=== PATIENT | male | born 1975 | race Caucasian/White ===

== ENCOUNTER 2016-05-26 09:01 | Emergency (ER) | payer OTHER ==
[2016-05-26] MEDS ORDERED: DEXAMETHASONE 10 MG/ML VIAL PO STA (09:29)
[2016-05-26] MEDS ORDERED: KETOROLAC 60 MG/2 ML VIAL IM STA (09:29)
[2016-05-26] MEDS ORDERED: DEXAMETHASONE 10 MG/ML VIAL ONE (09:33)
[2016-05-26] MEDS ORDERED: KETOROLAC 60 MG/2 ML VIAL ONE (09:33)
[2016-05-26] MEDS ORDERED: CHERRY SYRUP 10 ML UDC PO ONE (09:34)
== END 2016-05-26 09:55 | disposition home or self-care (01) ==
DX: M54.12 Radiculopathy, cervical region (principal); F17.200 Nicotine dependence, unspecified, uncomplicated
CPT/HCPCS: 96372; 99283; 99284; A9270

== ENCOUNTER 2020-07-17 08:00 | Outpatient (CLI) | payer OTHER ==
[2020-07-17 19:52] LABS: BASOPHILS # (AUTO) 0.1 10^3/uL (0.0-0.1); BASOPHILS % (AUTO) 0.9 %; EOSINOPHILS # (AUTO) 0.1 10^3/uL (0.0-0.7); EOSINOPHILS % (AUTO) 0.7 %; HCT - HEMATOCRIT 41.4 % (42.0-52.0); HGB - HEMOGLOBIN 13.3 g/dL (14.0-18.0); MEAN CORPUSCULAR HEMOGLOBIN 32.5 pg (27.0-31.0); MEAN CORPUSCULAR HGB CONC 32.1 g/dL (32.0-36.0); MEAN CORPUSCULAR VOLUME 101.2 fL (80.0-94.0); MEAN PLATELET VOLUME 8.9 fL (7.4-11.4); MONOCYTES # (AUTO) 0.6 10^3/uL (0.0-1.0); MONOCYTES % (AUTO) 8.2 %; NEUTROPHILS # (AUTO) 4.2 10^3/uL (1.5-6.6); NEUTROPHILS % (AUTO) 61.1 %; PLT - PLATELET COUNT 394 10^3/uL (130-450); RED BLOOD COUNT 4.09 10^6/uL (4.70-6.10); WHITE BLOOD COUNT 6.9 x10^3/uL (4.8-10.8)
[2020-07-17 20:06] LABS: ALBUMIN 4.2 g/dL (3.2-5.5); ALBUMIN/GLOBULIN RATIO 1.4 (1.0-2.2); BILIRUBIN,TOTAL 0.5 mg/dL (0.2-1.0); CALCIUM 9.2 mg/dL (8.5-10.3); CREATININE 0.7 mg/dL (0.6-1.2); TOTAL PROTEIN 7.2 g/dL (6.7-8.2)
[2020-07-17 20:23] LABS: THYROID STIMULATING HORMONE 1.85 uIU/mL (0.34-5.60)
== END 2020-07-17 23:59 | disposition home or self-care (01) ==
LOC: LAB.S 08:00
PROVIDERS: ATTEND Physician Assistant
DX: F41.9 Anxiety disorder, unspecified (principal); R03.0 Elevated blood-pressure reading, without diagnosis of hypertension; R07.9 Chest pain, unspecified
CPT/HCPCS: 36415; 80053; 84443; 85025

== ENCOUNTER 2021-12-05 12:05 | Emergency (ER) | payer OTHER ==
--- OUTSIDE RECORDS SUMMARY | 2021-12-05 12:25 | EXTERNAL MEDICAL SUMMARY RPT | Continuity of Care Document ---
:1975 Author Organization [facility] Address [address] [place] [address] Phone Care Team Providers Name Role Phone Unavailable Unavailable Unavailable Addie Physical Sciences Professor-C Unavailable Unavailable Allergies No information. Encounters No information. Functional Status No information. Immunizations No information. Medications date description facility [id number]+0000 hydrocodone-acetaminophen [facility] gu[place] [phone]+0000 hydrocodone-acetaminophen [facility] [phone]+0000 hydrocodone-acetaminophen [facility] [phone]+0000 hydrocodone-acetaminophen [facility] Problems No information. Procedures date description facility [id number] Visit Code Hold [facility] [phone]+0000 CT ABDOMEN/PELVIS W [facility] [phone]+0000 US ABDOMEN LIMITED [facility] Results/Labs No information. Social History date description facility [phone] Current every day smoker Walk-In [facility] Vital Signs date measurement value units [id number] BMI BMI 22.05 kg/m2 [id number]+0000 BP_diastolic BP_diastolic 81 mmHg [id number]+0000 BP_systolic BP_systolic 132 mmHg [id number]+0000 heart_rate heart_rate 98 /min [id number]+0000 height_metric height_metric 182.88 cm [id number]+0000 height_standard height_standard 72 in [id number]+0000 respiration_rate respiration_rate 15 /min [id number]+0000 temperature_metric temperature_metric 36.28 C [id number]+0000 temperature_standard temperature_standard 9 7.3 F [id number]+0000 weight_metric weight_metric 73.48 kg [id number]+0000 weight_standard weight_standard 162 lb
--- NOTE | 2021-12-05 12:46 | ED Physician Documentation ---
PD HPI ABD PAIN - Stated complaint Stated Complaint: ABD PX - Chief complaint Chief Complaint: Abd Pain - History obtained from History obtained from: Patient - History of Present Illness Timing - onset: How many weeks ago (Patient has had several weeks of intermittent right lower abdominal pain with a feeling of swelling in the soft tissue. Its been more notable over the last several days. Was seen in the walk-in clinic and had ultrasound of the abdomen which suggested a mass. CT scan done yesterday=appendicitis.) Timing - duration: Days (more consistent RLQ pain), Weeks (intermittent right lower pain) Timing - details: Waxing and waning Quality: Cramping, Aching Location: RLQ Radiation: No: Right flank Associated symptoms: Nausea. No: Fever, Vomiting, Diarrhea Review of Systems Constitutional: denies: Fever, Chills Nose: denies: Rhinorrhea / runny nose, Congestion Throat: denies: Sore throat Respiratory: denies: Cough GI: reports: Abdominal Pain, Nausea. denies: Vomiting, Diarrhea Skin: denies: Rash, Lesions PD PAST MEDICAL HISTORY - Past Medical History Cardiovascular: None GI: None - Past Surgical History Past Surgical History: No - Present Medications Home Medications: Ambulatory Orders Medication Instructions Recorded Confirmed Ibuprofen [Motrin] 600 mg PO TID #30 tab 09/07/15 05/26/16 Cyclobenzaprine [Flexeril] 10 mg PO TID PRN #20 tablet 05/26/16 Gabapentin 300 mg PO TID 05/26/16 05/26/16 HYDROcod/ACETAM 5/325 [[place] 5/325] 1 - 2 ea PO Q6H PRN #15 tablet 05/26/16 - Allergies Allergies/Adverse Reactions: Allergies Allergy/AdvReac Type Severity Reaction Status Date / Time No Known Drug Allergies Allergy Verified 12/05/21 12:11 - Social History Does the pt smoke?: Yes Smoking Status: Current every day smoker Does the pt drink ETOH?: Yes Does the pt have substance abuse?: No - Immunizations Immunizations are current?: Yes PD ED PE NORMAL - Vitals Vital signs reviewed: Yes - General General: Alert and oriented X 3, Well developed/nourished, Other (seems uncomfortable RLQ. ) - Cardiac Cardiac: RRR, No murmur - Respiratory Respiratory: Clear bilaterally - Abdomen Abdomen: Normal bowel sounds, Non distended, No organomegaly, Other (tender RLQ with some guarding. No general tenderness. ) - Male Male : Deferred - Rectal Rectal: Deferred - Back Back: No CVA TTP - Derm Derm: Normal color, Warm and dry Results - Vitals Vitals: Vital Signs - 24 hr 12/05/21 12/05/21 12/05/21 12:11 16:15 18:00 Temperature 36.5 C 37.4 C 37.2 C Heart Rate 110 H 73 88 Respiratory 16 18 18 Rate Blood Pressure 145/86 H 118/79 132/90 H O2 Saturation 99 98 99 12/05/21 20:00 Temperature 37.0 C Heart Rate 89 Respiratory 18 Rate Blood Pressure 144/100 H O2 Saturation 98 Oxygen O2 Source Room air - Labs Labs: Laboratory Tests 12/05/21 12/05/21 12/05/21 13:13 13:13 13:13 WBC 12.7 H RBC 3.96 L Hgb 12.7 L Hct 38.0 L MCV 96.0 H MCH 32.1 H MCHC 33.4 RDW 12.2 Plt Count 567 H MPV 7.9 Neut # (Auto) 9.8 H Lymph # (Auto) 1.4 L [place] # (Auto) 1.1 H Eos # (Auto) 0.2 Baso # (Auto) 0.1 Absolute Nucleated RBC 0.00 Nucleated RBC % 0.0 Sodium 138 Potassium 3.7 Chloride 104 Carbon Dioxide 23 Anion Gap 11.0 BUN 11 Creatinine 0.7 Estimated GFR (MDRD) 121 Glucose 126 H Calcium 8.7 Total Bilirubin 0.3 AST 22 ALT 20 Alkaline Phosphatase 106 Total Protein 7.4 Albumin 3.3 Globulin 4.1 Albumin/Globulin Ratio 0.8 L Lipase 32 SARS-CoV-2 (PCR) NOT DETECTED - Rads (name of study) abd CT from 12/04 Radiology: Final report received (pericecal fluid collection 4.4x3.2 cm c/w appendicitis vs cecal cancer. ) PD MEDICAL DECISION MAKING - ED course Complexity details: reviewed results, considered differential, d/w patient, d/w building consultant (I talked with surgery on-call and the surgeon reviewed the CT images and examined the patient. The feeling was the patient would be better treated with percutaneous drainage and treatment that way rather than immediate open surgery. We are unable to get that performed at our facility so transfer.) ED course: looking for other facilities to take patient that have IR capability for perc drainage. Care given dawn to oncoming EDMD. Departure - Departure Disposition: 02 Transfer Acute Care Hosp Clinical Impression: Right lower quadrant abdominal pain Appendicitis Qualifiers: Appendicitis type: acute appendicitis Acute appendicitis type: with localized peritonitis Appendicitis gangrene presence: without gangrene Appendicitis perforation presence: with perforation Appendicitis abscess presence: with abscess Qualified Code(s): K35.33 - Acute appendicitis with perforation and localized peritonitis, with abscess Condition: Stable Record reviewed to determine appropriate education?: Yes
[2021-12-05] MEDS ORDERED: SODIUM CHLORIDE 0.9% 1,000 ML IV STA (13:03)
[2021-12-05 13:18] LABS: BASOPHILS # (AUTO) 0.1 10^3/uL (0.0-0.1); BASOPHILS % (AUTO) 0.7 %; EOSINOPHILS # (AUTO) 0.2 10^3/uL (0.0-0.7); EOSINOPHILS % (AUTO) 1.7 %; HGB - HEMOGLOBIN 12.7 g/dL (14.0-18.0); LYMPHOCYTES # (AUTO) 1.4 10^3/uL (1.5-3.5); LYMPHOCYTES % (AUTO) 11.1 %; MEAN CORPUSCULAR HEMOGLOBIN 32.1 pg (27.0-31.0); MEAN CORPUSCULAR HGB CONC 33.4 g/dL (32.0-36.0); MEAN PLATELET VOLUME 7.9 fL (7.4-11.4); MONOCYTES # (AUTO) 1.1 10^3/uL (0.0-1.0); MONOCYTES % (AUTO) 8.7 %; NEUTROPHILS # (AUTO) 9.8 10^3/uL (1.5-6.6); NEUTROPHILS % (AUTO) 77.4 %; PLT - PLATELET COUNT 567 10^3/uL (130-450); RED BLOOD COUNT 3.96 10^6/uL (4.70-6.10); RED CELL DISTRIBUTION WIDTH 12.2 % (12.0-15.0); WHITE BLOOD COUNT 12.7 x10^3/uL (4.8-10.8)
[2021-12-05 13:32] LABS: ALBUMIN 3.3 g/dL (3.2-5.5); ALBUMIN/GLOBULIN RATIO 0.8 (1.0-2.2); BILIRUBIN,TOTAL 0.3 mg/dL (0.2-1.0); CALCIUM 8.7 mg/dL (8.5-10.3); CREATININE 0.7 mg/dL (0.6-1.2); POTASSIUM 3.7 mmol/L (3.5-5.0); TOTAL PROTEIN 7.4 g/dL (6.7-8.2)
[2021-12-05] MEDS ORDERED: PIPERACILLIN/TAZOBACTAM 3.375 GM in SODIUM CHLORIDE 0.9% MINIBAG 100 ML IV STA ×2 (14:02→18:38)
--- NOTE | 2021-12-05 14:34 | CONSULTATION NOTE ---
Referring Provider Name of Referring Provider:: Dr. Ford Consult Date: 12/05/21 Chief Complaint - Chief Complaint Chief Complaint: abdominal pain History of Present Illness - History Obtained From Records Reviewed: ED, radiology History obtained from: patient, chart - History of Present Illness HPI Comment/Other: This is a very pleasant 46-year-old gentleman who reports that he has had abdominal pain in the right lower quadrant for the last 1 month. He denies any associated nausea, vomiting, fevers, chills, constipation, diarrhea, or blood in his stool.He tells me he is has been able to tolerate a regular diet without any difficulty. He also denies any melanotic stool. He states its been a nagging, achy, constant pain. He has never had pain like this in the past. When he looked in the mirror, he noted swelling on the right side of his abdomen and it is tender to palpation. For this he went to urgent care where he had an ultrasound, subsequent CT, and was referred to the emergency department. There is concern for perforated appendicitis versus perforated cancer, and for this I was consulted. At the time of my interview and exam, the patient states that he has pain mostly with palpation. He denies feeling nauseous or febrile. He has not had any recent sick contacts.He has never had a colonoscopy. History - Past Medical History Cardiovascular: reports: Hypertension GI: reports: None Psych: reports: Anxiety - Past Surgical History Neuro: reports: Craniotomy (After trauma) - Family & Social History Family History Comment/Other: Patient denies any family history of colon cancer. He states he does have a family history of stomach cancer and breast cancer. - Substance History Use: Uses substance without health or social issues: Tobacco (Half a pack per day), Alcohol (Sixpack of beer per day) Tobacco Details: Cigarettes Meds/Allgy - Home Medications Home Medications: Ambulatory Orders Medication Instructions Recorded Confirmed Ibuprofen [Motrin] 600 mg PO TID #30 tab 09/07/15 05/26/16 Cyclobenzaprine [Flexeril] 10 mg PO TID PRN #20 tablet 05/26/16 Gabapentin 300 mg PO TID 05/26/16 05/26/16 HYDROcod/ACETAM 5/325 [[place] 5/325] 1 - 2 ea PO Q6H PRN #15 tablet 05/26/16 - Allergies Allergies/Adverse Reactions: Allergies Allergy/AdvReac Type Severity Reaction Status Date / Time No Known Drug Allergies Allergy Verified 12/05/21 12:11 Review of Systems - Other Findings Other Findings: A complete 10 point review of symptoms is otherwise negative except for that noted in HPI and PMH. Exam - Vital Signs Reviewed Vital Signs: Yes Vital Signs: Vital Signs x48h Temp Pulse Resp BP Pulse Ox 12/05/21 12:11 36.5 C 110 H 16 145/86 H 99 - Physical Exam General Appearance: positive: No acute distress, Alert Eyes Bilateral: positive: Normal inspection ENT: positive: ENT inspection nml Neck: positive: Nml inspection Respiratory: positive: Chest non-tender, No respiratory distress Cardiovascular: positive: Regular rate & rhythm, No murmur Peripheral Pulses: positive: 2+ Abdomen: positive: No distention, Tenderness (Mild in right lower quadrant, otherwise nontender), Mass (Palpable). negative: Guarding, Rebound Back: positive: Nml inspection Skin: positive: Color nml Extremities: positive: Non-tender, Full ROM Neurologic/Psychiatric: positive: Oriented x3 Conclusion and Plan - Lab Results Laboratory Results 12/05/21 13:13: Sodium 138, Potassium 3.7, Chloride 104, Carbon Dioxide 23, Anion Gap 11.0, BUN 11, Creatinine 0.7, Estimated GFR (MDRD) 121, Glucose 126 H, Calcium 8.7, Total Bilirubin 0.3, AST 22, ALT 20, Alkaline Phosphatase 106, Total Protein 7.4, Albumin 3.3, Globulin 4.1, Albumin/Globulin Ratio 0.8 L, Lipase 32 12/05/21 13:13: WBC 12.7 H, RBC 3.96 L, Hgb 12.7 L, Hct 38.0 L, MCV 96.0 H, MCH 32.1 H, MCHC 33.4, RDW 12.2, Plt Count 567 H, MPV 7.9, Neut # (Auto) 9.8 H, Lymph # (Auto) 1.4 L, [place] # (Auto) 1.1 H, Eos # (Auto) 0.2, Baso # (Auto) 0.1, Absolute Nucleated RBC 0.00, Nucleated RBC % 0.0 - Diagnostic Imaging Results Diagnostic Imaging Results: positive: Final report reviewed Diagnostic Imaging Results Comments: I personally reviewed the images and reports from the patient's recent ultrasound and CT scan. - Diagnosis Diagnosis: perforated appendicitis vs perforated colorectal cancer - Plan Plan: This is a 46 y/o M with: 1. perforated appendicitis vs perforated cancer - Given patient's age, perforated appendicitis is more likely - Fluid collection adjacent to cecum would likely be amenable to perc drainage. I discussed options of transfer for perc drain (which may take several days) and surgical intervtion which at this time would likely include right hemicolectomy. I described that if the patient's pain and leukocytosis improve with perc drain and antibiotics, he may not require surgery but would require a colonosocopy in six weeks. I also explained that he may require surgery regardless of the first step we decide to take. He voiced understanding and his questions were answered. He would like to proceed with antibiotics and percutaneous drainage of the fluid collection at this time. -IR perc drainage not available at this time at this facility. Patient may require transfer to higher level of care. He is quite stable; if IR drain could be scheduled as outpatient, this may also be an option. - I recommend IV antibiotics until definitive plan in place, then transition to PO abx for total treatment two weeks. - as the patient is tolerating PO well, it is reasonable to let him eat a regular diet. - he may follow up locally with general surgery for colonscopy, if desired.
[2021-12-05] MEDS ORDERED: NICOTINE 14 MG PATCH TOP STA (14:40)
[2021-12-05] MEDS ORDERED: HYDROmorphone 0.5 MG/0.5 ML SYRINGE IVP STA (14:40)
[2021-12-05] MEDS ORDERED: KETOROLAC 15 MG/ML VIAL IVP STA (14:40)
[2021-12-06] MEDS ORDERED: PIPERACILLIN/TAZOBACTAM 3.375 GM in SODIUM CHLORIDE 0.9% MINIBAG 100 ML IV SCH ×2
[2021-12-06 00:20] VITALS: BP 144/89
--- NOTE | 2021-12-06 00:25 | ED Physician Documentation ---
ED Addendum - Addendum Addendum: 12/06/21 00:[address] Hanson of [facility], who accepted the patient's case. Patient was transported via ground in stable condition for higher level of care
== END 2021-12-06 00:23 | disposition short-term general hospital (02) ==
LOC: ED 12:05
DX: K35.33 Acute appendicitis with perforation, localized peritonitis, and gangrene, with abscess (principal); F17.200 Nicotine dependence, unspecified, uncomplicated; I10 Essential (primary) hypertension; Z20.822 Contact with and (suspected) exposure to COVID-19
CPT/HCPCS: 36415; 80053; 83690; 85025; 87635; 96365; 96366; 96375; 99284; 99285; A9270; J1170

== ENCOUNTER 2021-12-06 00:24 | Outpatient (CLI) | payer OTHER | END 2021-12-06 23:59 | disposition short-term general hospital (02) | LOC: EMS 00:24 | PROVIDERS: ATTEND Emergency Medicine | DX: K35.33 Acute appendicitis with perforation, localized peritonitis, and gangrene, with abscess (principal) | CPT/HCPCS: A0425; A0426 ==

== ENCOUNTER 2022-01-01 12:28 | Emergency (ER) | payer OTHER ==
[2022-01-01 12:53] LABS: BASOPHILS % (AUTO) 0.3 %; EOSINOPHILS % (AUTO) 0.1 %; HCT - HEMATOCRIT 37.2 % (42.0-52.0); HGB - HEMOGLOBIN 12.4 g/dL (14.0-18.0); LYMPHOCYTES # (AUTO) 1.2 10^3/uL (1.5-3.5); LYMPHOCYTES % (AUTO) 9.6 %; MEAN CORPUSCULAR HEMOGLOBIN 32.5 pg (27.0-31.0); MEAN CORPUSCULAR HGB CONC 33.3 g/dL (32.0-36.0); MEAN CORPUSCULAR VOLUME 97.4 fL (80.0-94.0); MEAN PLATELET VOLUME 8.4 fL (7.4-11.4); MONOCYTES % (AUTO) 7.4 %; NEUTROPHILS # (AUTO) 10.6 10^3/uL (1.5-6.6); NEUTROPHILS % (AUTO) 82.4 %; PLT - PLATELET COUNT 315 10^3/uL (130-450); RED BLOOD COUNT 3.82 10^6/uL (4.70-6.10); RED CELL DISTRIBUTION WIDTH 12.7 % (12.0-15.0); WHITE BLOOD COUNT 12.9 x10^3/uL (4.8-10.8)
[2022-01-01 13:10] LABS: ALBUMIN 3.6 g/dL (3.2-5.5); ALBUMIN/GLOBULIN RATIO 0.9 (1.0-2.2); BILIRUBIN,TOTAL 0.5 mg/dL (0.2-1.0); CALCIUM 8.7 mg/dL (8.5-10.3); CREATININE 0.7 mg/dL (0.6-1.2); POTASSIUM 3.6 mmol/L (3.5-5.0); TOTAL PROTEIN 7.5 g/dL (6.7-8.2)
[2022-01-01 13:13] LABS: BILIRUBIN,URINE NEGATIVE (NEGATIVE); GLUCOSE, URINE (UA) 100 mg/dL (NEGATIVE); KETONES,URINE (UA) NEGATIVE (NEGATIVE); LEUKOCYTE ESTERASE, URINE SMALL (NEGATIVE); NITRITE,URINE NEGATIVE (NEGATIVE); OCCULT BLOOD,URINE MODERATE (NEGATIVE); PROTEIN,URINE NEGATIVE (NEGATIVE); UROBILINOGEN,URINE 0.2 (NORMAL) E.U./dL (NORMAL)
[2022-01-01 13:15] LABS: CLARITY,URINE CLEAR (CLEAR)
[2022-01-01 13:28] LABS: WBC,URINE 0-3 /HPF (0-3)
[2022-01-01 13:29] LABS: BACTERIA,URINE Rare /HPF (None Seen); RBC,URINE 0-5 /HPF (0-5); SQUAMOUS EPITHELIAL CELL,UR RARE Squamous (<= Few)
--- NOTE | 2022-01-01 15:38 | ED Physician Documentation ---
PD HPI ABD PAIN - Stated complaint Stated Complaint: ABD PX - Chief complaint Chief Complaint: Abd Pain - History obtained from History obtained from: Patient - Additional information Additional information: Otherwise healthy 46-year-old gentleman presents for evaluation of 2 weeks of abdominal pain and distention. He is about 3 weeks out from laparoscopic appendectomy. He feels swollen. He is moving his bowels okay. Denies nausea. Declines pain medication on initial evaluation. Review of Systems Ten Systems: 10 systems reviewed and negative Constitutional: reports: Reviewed and negative Cardiac: reports: Reviewed and negative Respiratory: reports: Reviewed and negative PD PAST MEDICAL HISTORY - Past Medical History Cardiovascular: None GI: None Psych: Anxiety - Past Surgical History Past Surgical History: No Neuro: Craniotomy (After trauma) - Present Medications Home Medications: Ambulatory Orders Medication Instructions Recorded Confirmed Ibuprofen [Motrin] 600 mg PO TID #30 tab 09/07/15 05/26/16 Cyclobenzaprine [Flexeril] 10 mg PO TID PRN #20 tablet 05/26/16 Gabapentin 300 mg PO TID 05/26/16 05/26/16 HYDROcod/ACETAM 5/325 [[place] 5/325] 1 - 2 ea PO Q6H PRN #15 tablet 05/26/16 Amox/Clav 875/125 [Augmentin] 1 each PO Q12H #20 tablet 01/01/22 - Allergies Allergies/Adverse Reactions: Allergies Allergy/AdvReac Type Severity Reaction Status Date / Time No Known Drug Allergies Allergy Verified 01/01/22 12:40 - Social History Does the pt smoke?: Yes Smoking Status: Current every day smoker Does the pt drink ETOH?: Yes Does the pt have substance abuse?: No - Immunizations Immunizations are current?: Yes PD ED PE NORMAL - Vitals Vital signs reviewed: Yes - General General: Alert and oriented X 3, Other (Moderate resting tachycardia.) - HEENT HEENT: PERRL, EOMI - Neck Neck: Supple, no meningeal sign, No bony TTP - Cardiac Cardiac: RRR, No murmur - Respiratory Respiratory: No respiratory distress, Clear bilaterally - Abdomen Abdomen: Normal bowel sounds, Soft, Other (Mild tenderness in the low abdomen. Bedside ultrasound does not demonstrate ascites.) - Back Back: No CVA TTP, No spinal TTP - Derm Derm: Normal color, Warm and dry - Extremities Extremities: No edema, No calf tenderness / cord - Neuro Neuro: Alert and oriented X 3, Normal speech Results - Vitals Vitals: Vital Signs - 24 hr 01/01/22 01/01/22 12:34 17:14 Temperature 36.4 C L 37 C Heart Rate 110 H 89 Respiratory 16 18 Rate Blood Pressure 148/85 H 125/77 O2 Saturation 100 99 Oxygen O2 Source Room air - Labs Labs: Laboratory Tests 01/01/22 01/01/22 01/01/22 12:48 12:48 12:57 WBC 12.9 H RBC 3.82 L Hgb 12.4 L Hct 37.2 L MCV 97.4 H MCH 32.5 H MCHC 33.3 RDW 12.7 Plt Count 315 MPV 8.4 Neut # (Auto) 10.6 H Lymph # (Auto) 1.2 L [place] # (Auto) 1.0 Eos # (Auto) 0.0 Baso # (Auto) 0.0 Absolute Nucleated RBC 0.00 Nucleated RBC % 0.0 Sodium 132 L Potassium 3.6 Chloride 98 L Carbon Dioxide 23 Anion Gap 11.0 BUN 11 Creatinine 0.7 Estimated GFR (MDRD) 121 Glucose 207 H Calcium 8.7 Total Bilirubin 0.5 AST 19 ALT 14 Alkaline Phosphatase 70 Total Protein 7.5 Albumin 3.6 Globulin 3.9 Albumin/Globulin Ratio 0.9 L Lipase 36 Urine Color LT. YELLOW Urine Clarity CLEAR Urine pH 6.0 Ur Specific [place] <=1.005 Urine Protein NEGATIVE Urine Glucose (UA) 100 H Urine Ketones NEGATIVE Urine Occult Blood MODERATE H Urine Nitrite NEGATIVE Urine Bilirubin NEGATIVE Urine Urobilinogen 0.2 (NORMAL) Ur Leukocyte Esterase SMALL H Urine RBC 0-5 Urine WBC 0-3 Ur Squamous Epith Cells RARE Squamous Urine Bacteria Rare Ur Microscopic Review INDICATED Urine Culture Comments INDICATED PD MEDICAL DECISION MAKING - ED course ED course: 46-year-old gentleman with recurrent periappendiceal abscess despite recent appendectomy. He appears well with minimally elevated white count. He received a dose of Zosyn here. I discussed the case with Dr. CLEMONS who agrees that it is percutaneously accessible and can be done here tomorrow. I discussed the case with Dr. Mccall who is happy to admit but we made arrangements for him to have it done as an outpatient tomorrow. Departure - Departure Disposition: 01 Home, Self Care Clinical Impression: Abscess, periappendiceal Condition: Good Record reviewed to determine appropriate education?: Yes Prescriptions: Amox/Clav 875/125 [Augmentin] 1 each PO Q12H #20 tablet Comments: Do not eat or drink after midnight. Return tomorrow at 9 AM for percutaneous drainage of your abscess. The surgery scheduler may call you before that time to change the time.
[2022-01-01] MEDS ORDERED: iohexoL-300 100 ML VIAL ONE (15:46)
[2022-01-01] MEDS ORDERED: PIPERACILLIN/TAZOBACTAM 3.375 GM in SODIUM CHLORIDE 0.9% MINIBAG 100 ML IV STA (16:56)
[2022-01-01 17:15] VITALS: BP 125/77
--- NOTE | 2022-01-01 17:35 | CT Report ---
PROCEDURE: Abdomen/Pelvis W INDICATIONS: iv only, low abd pain p appy CONTRAST: IV CONTRAST: Isovue 300 ml: 100 PO CONTRAST: *NO PO CONTRAST TECHNIQUE: After the administration of intravenous contrast, 5 mm thick sections acquired from the diaphragms to the symphysis. 5 mm thick coronal and sagittal reformats were acquired. For radiation dose reducti on, the following was used: automated exposure control, adjustment of mA and/or kV according to alistair ent size. COMPARISON: CT abdomen pelvis 12/04/2021 FINDINGS: Image quality: Excellent. Images are denoted as (series #/image #). Visualized lung bases: No pleural effusion. Liver and biliary tree: No suspect focal hepatic lesion. No biliary ductal dilation. Gallbladder: No radiopaque cholelithiasis. Spleen: Unremarkable. Pancreas: Unremarkable. Adrenal glands: Unremarkable. Kidneys and ureters: No hydronephrosis. Gastrointestinal tract: Residual or recurrent enhancing fluid collection suspicious for an abscess la teral to the cecum, 4.8 x 4.7 x 4.7 cm (3/41, 09/17). Peritoneal cavity/extraperitoneal spaces: Right lower quadrant collection as above. No definite or tucker bstantial pneumoperitoneum or free fluid. Bladder: Unremarkable. Pelvic organs: Unremarkable CT appearance. Vasculature: No abdominal aortic aneurysm. Musculoskeletal: Bilateral L5-S1 pars defects IMPRESSION: Residual or recurrent peripherally enhancing fluid collection suspicious for an abscess lateral to th e cecum. In the setting of recent surgery, a leak from the operative site cannot be excluded. Reviewed by: Mikel Elliott MD on 01/01/2022 5:34 PM PDT Approved by: Mikel Elliott MD on 01/01/2022 5:34 PM PDT Station ID: [id number]
[2022-01-01 18:32] LABS: INR 0.9 (0.8-1.2)
[2022-01-01 18:36] LABS: B. PARAPERTUSSIS- RESP PCR PAN NOT DETECTED; B. PERTUSSIS- RESP PCR PANEL NOT DETECTED; C. PNEUMONIAE- RESP PCR PANEL NOT DETECTED; CORONAVIRUS 229E-RESP PCR NOT DETECTED; CORONAVIRUS HKU1-RESP PCR NOT DETECTED; CORONAVIRUS NL63-RESP PCR NOT DETECTED; CORONAVIRUS OC43-RESP PCR NOT DETECTED; HUMAN METAPNEUMOVIRUS NOT DETECTED; INFLUENZA A- RESP PCR PANEL NOT DETECTED; INFLUENZA B - RESP PCR PANEL NOT DETECTED; M. PNEUMONIAE- RESP PCR PANEL NOT DETECTED; PARAINFLUENZA VIRUS 1 NOT DETECTED; PARAINFLUENZA VIRUS 2 NOT DETECTED; PARAINFLUENZA VIRUS 3 NOT DETECTED; PARAINFLUENZA VIRUS 4 NOT DETECTED; RHINOVIRUS/ENTEROVIRUS NOT DETECTED; RSV- RESP PCR PANEL NOT DETECTED; SARS-CoV-2 -RESP PCR PANEL NOT DETECTED
[2022-01-01] MEDS ORDERED: iohexoL-300 100 ML VIAL IVP ONE (22:09)
== END 2022-01-01 18:33 | disposition home or self-care (01) ==
LOC: ED 12:28
DX: K35.33 Acute appendicitis with perforation, localized peritonitis, and gangrene, with abscess (principal); F17.200 Nicotine dependence, unspecified, uncomplicated
CPT/HCPCS: 36415; 74177; 80053; 81001; 83690; 85025; 85610; 87086; 87633; 96365; 99284; Q9967; 81003

== ENCOUNTER 2022-01-03 08:10 | Day surgery (SDC) | payer OTHER ==
[2022-01-03] MEDS ORDERED: LACTATED RINGERS 1,000 ML IV ONE ×2 (08:30→10:15)
[2022-01-03] MEDS ORDERED: ROPIVACAINE 0.5% PF 20 ML AMPULE ONE (08:44)
[2022-01-03] MEDS ORDERED: FLUMAZENIL 0.1 MG/1 ML 5 ML MDV IVP ONE (09:09)
[2022-01-03] MEDS ORDERED: MIDAZOLAM 2 MG/2 ML VIAL ONE (09:09)
[2022-01-03] MEDS ORDERED: fentaNYL 100 MCG/2 ML VIAL ONE ×2 (09:09)
[2022-01-03] MEDS ORDERED: NALOXONE 0.4 MG/ML VIAL ONE (09:09)
--- NOTE | 2022-01-03 11:02 | CT Report ---
PROCEDURE: RETROPERITONEAL ABSC DRAIN Sedation analgesia for 20 minutes. INDICATIONS: ABSCESS TECHNIQUE: The indications, alternatives, benefits, risks, and possible complications of the procedure were comm unicated to the patient. Informed written consent from the patient was obtained and placed in the art. Continuous EKG and hemodynamic monitoring was started by trained personnel. For radiation dose reduction, the following was used: automated exposure control, adjustment of mA and/or kV according to patient size. The patient was brought to the CT suite and survey party chief spiral CT imaging was performed with localization g rid. The appropriate site for percutaneous access to the biopsy target was marked, was prepped and d raped sterilely, and was infused with local anaesthesia. Under CT guidance, a Chiba trocar and needl e set was advanced to the fluid collection and specimen(s) were obtained. Following wire placement se rial dilations, an 8 [place] locking pigtail was placed into the collection. Following placement, 12 c c of serosanguineous fluid was aspirated. Pigtail catheter was secured using sutures and attached to a gravity drainage bag. COMPARISON: 01/01/2022 FINDINGS: 8 [place] locking pigtail drain placed in the right midabdomen, as described above. Medications: 1% lidocaine for local anaesthesia. IV Fentanyl and Versed for conscious sedation for 20 minutes (see nursing record). Complications: None. IMPRESSION: Successful placement of locking pigtail drain in the right hemiabdomen fluid collection. 12 cc of serosanguineous fluid was aspirated following the procedure. Drain was secured with sutures and attached to gravity drainage bag. Reviewed by: Cleveland Arriaga MD on 01/03/2022 11:01 AM PDT Approved by: Cleveland Arriaga MD on 01/03/2022 11:01 AM PDT Station ID: [id number]
[2022-01-03] MEDS ORDERED: ROPIVACAINE 0.5% PF 20 ML AMPULE EP ONE (12:51)
[2022-01-03 13:07] VITALS: BP 130/81
== END 2022-01-03 08:11 | disposition home or self-care (01) ==
LOC: SDS 08:10
PROVIDERS: ATTEND Emergency Medicine
DX: K35.33 Acute appendicitis with perforation, localized peritonitis, and gangrene, with abscess (principal); F17.200 Nicotine dependence, unspecified, uncomplicated; Z90.49 Acquired absence of other specified parts of digestive tract; Z98.890 Other specified postprocedural states
CPT/HCPCS: 49406; J7120

== ENCOUNTER 2022-02-07 07:37 | Outpatient (CLI) | payer OTHER ==
[2022-02-07] MEDS ORDERED: LACTATED RINGERS 1,000 ML IV ONE ×2 (08:17→09:49)
[2022-02-07] MEDS ORDERED: MIDAZOLAM 2 MG/2 ML VIAL ONE (08:36)
[2022-02-07] MEDS ORDERED: fentaNYL 100 MCG/2 ML VIAL ONE (08:36)
[2022-02-07] MEDS ORDERED: lidocaine 1% 20 ML MDV SUBQ ONE (10:10)
[2022-02-07 10:57] VITALS: BP 125/86
--- NOTE | 2022-02-07 10:57 | CT Report ---
PROCEDURE: PERITONEAL ABSC DRAIN Sedation analgesia for 30 minutes. INDICATIONS: ABSCESS TECHNIQUE: The indications, alternatives, benefits, risks, and possible complications of the procedure were comm unicated to the patient. Informed written consent from the patient was obtained and placed in the art. Continuous EKG and hemodynamic monitoring was started by trained personnel. The patient was brought to the CT suite and trades helper spiral CT imaging was performed with localization g rid. The appropriate site for percutaneous access drain target was marked, was prepped and draped st erilely, and was infused with local anaesthesia. Under CT guidance, an 18-gauge Chiba needle was adv anced into the collection. Multiple attempts at aspiration yielded 2 cc of thick, clotted dark red ma terial. Patient reports that the prior drain clogged within 1 day of placement at last attempt. Due to difficulty with aspiration, a drain was not placed due to high chance that the remaining fluid will not easily drained. COMPARISON: 01/03/2022 FINDINGS: Intraprocedure images show a 3.8 x 3.5 cm right pericecal fluid collection with an 18-gauge Chiba nee dle tip in the center of the collection. Attempted aspiration yielded 2 cc of thick clotted material. No drain was placed due to high chance that this would quickly clog again. Findings and patient lorrie gastelum was discussed with Dr. Ivan Winslow. IMPRESSION: CT guided attempted aspiration of the right pericecal fluid collection. Reviewed by: Cleveland Arriaga MD on 02/07/2022 10:55 AM PST Approved by: Cleveland Arriaga MD on 02/07/2022 10:55 AM PST Station ID: [id number]
== END 2022-02-07 07:38 | disposition home or self-care (01) ==
LOC: DI 07:37
PROVIDERS: ATTEND Registered Nurse
DX: K65.1 Peritoneal abscess (principal)
CPT/HCPCS: 49406; J7120

== ENCOUNTER 2022-03-25 13:43 | Outpatient (CLI) | payer OTHER ==
[2022-03-25 20:00] LABS: INR 0.8 (0.8-1.2); PT - PROTHROMBIN TIME 9.3 secs (9.9-12.6)
[2022-03-25 20:07] LABS: PARTIAL THROMBOPLASTIN TIME 30.3 secs (24.9-33.3)
== END 2022-03-25 13:44 | disposition home or self-care (01) ==
LOC: LAB.S 13:43
PROVIDERS: ATTEND Internal Medicine Hematology & Oncology
DX: C18.2 Malignant neoplasm of ascending colon (principal)
CPT/HCPCS: 36415; 85049; 85610; 85730